=== PATIENT | female | born 2000 | race Caucasian/White ===

== ENCOUNTER 2022-03-12 10:56 | Emergency (ER) | payer SELFPAY ==
[~2022-03-12] VITALS: Ht 160 cm; Wt 50.0 kg
[2022-03-12] MEDS ORDERED: ONDANSETRON HCL 4 MG/2 ML VIAL IV ONE (12:30)
[2022-03-12] MEDS ORDERED: SODIUM CHLORIDE 0.9% 1,000 ML IV ONE (12:30)
[2022-03-12 13:06] LABS: Basophils # (auto) 0 10 ^3/uL (0-0.2); Eosinophils # (auto) 0 10 ^3/uL (0-0.8); Lymphocytes # (auto) 1.3 10 ^3/uL (0.4-5.4); White Blood Cell 6.1 10^3/uL (4.4-10.8)
[2022-03-12 13:08] LABS: Basophils % (auto) 0.4 % (0.0-2.0); Hematocrit 26.3 % (36.0-46.0); Hemoglobin 7.9 g/dL (12.2-16.2); Lymphocytes % (auto) 21.4 % (10.0-50.0); Mean Corpuscular Hemoglobin 17.9 pg (28.0-32.0); Mean Corpuscular Hgb Conc. 29.9 g/dL (32.0-36.0); Mean Corpuscular Volume 59.8 fL (80.0-100.0); Monocytes # (auto) 0.5 10 ^3/uL (0-1.3); Monocytes % (auto) 8.2 % (0.0-12.0); Neutrophils # (auto) 4.3 10 ^3/uL (1.6-8.6); Nucleated Red Blood Cells % 0.1 %; Red Blood Cells 4.41 10^6/uL (4.0-5.20); Red Cell Distribution Width 18.7 % (11.8-14.3)
[2022-03-12 13:22] LABS: Potassium 3.9 mmol/L (3.5-5.1)
[2022-03-12 13:26] LABS: BUN/Creatinine Ratio 35.5; Calcium 9.8 mg/dL (8.5-10.1)
[2022-03-12 13:29] LABS: Urine Bacteria FEW /hpf (None Seen); Urine Blood Negative /uL (Negative); Urine Mucus FEW (None Seen); Urine Specific Gravity 1.031 (1.001-1.035); Urine WBC 17 /hpf (0 - 5)
[2022-03-12] MEDS ORDERED: cefTRIAXone 1GM/50ML D5W 50 ML IV ONE (14:45)
[2022-03-12] MEDS ORDERED: ONDA-144 PO (15:17)
[2022-03-12 15:30] VITALS: BP 118/74
[2022-03-12] MEDS ORDERED: FER325T PO (15:37)
== END 2022-03-12 15:42 | disposition home or self-care (01) ==
LOC: ER 10:56
DX: O21.0 Mild hyperemesis gravidarum (principal); O23.41 Unspecified infection of urinary tract in pregnancy, first trimester; N39.0 Urinary tract infection, site not specified; O99.011 Anemia complicating pregnancy, first trimester; Z79.899 Other long term (current) drug therapy; Z3A.01 Less than 8 weeks gestation of pregnancy
CPT/HCPCS: 36415; 76801; 80048; 81001; 81025; 84702; 85025; 96360; 99284; J0696; J2405; J7030